=== PATIENT | female | born 2000 | race Caucasian/White ===

== ENCOUNTER 2023-09-19 04:39 | Emergency (ER) | payer SELFPAY ==
[~2023-09-19] VITALS: Ht 170.2 cm; Wt 81.8 kg
[~2023-09-19 04:39] MED LIST: CEPHALEXIN500 M1 PO; PREDNISONE20 MG PO; ZYRTEC 10MG10 MG PO
[2023-09-19 04:47] VITALS: TEMP 98
[2023-09-19] MEDS ORDERED: NS 1,000 ML IV ONE (05:15)
[2023-09-19] MEDS ORDERED: Morphine 4 MG/ML VIAL IV PRN (05:15)
[2023-09-19] MEDS ORDERED: Ondansetron 4 MG/2 ML VIAL IV PRN (05:15)
[2023-09-19] MEDS ORDERED: NS 50 ML IV ONE (05:26)
[2023-09-19] MEDS ORDERED: Iohexol 300 - 100 ML VIAL IV ONE (05:26)
[2023-09-19 05:39] LABS: ALBUMIN 3.6 g/dL (3.5-5.0); BILIRUBIN,TOTAL 0.2 mg/dL (0.2-1.2); CALCIUM 9.2 mg/dL (8.4-10.2); CREATININE, serum 0.72 mg/dL (0.57-1.11); POTASSIUM 3.6 mEq/L (3.5-4.5)
[2023-09-19 05:50] LABS: BASO # 0.1 K/mm3 (0.0-0.2); BASO % 0.6 % (0.0-2.0); EOS # 0.1 K/mm3 (0.0-0.7); EOS % 1.2 % (0.0-4.0); GRAN # 5.4 K/mm3 (1.4-6.5); HEMATOCRIT 37.6 % (37.0-47.0); HEMOGLOBIN 12.3 g/dl (12.5-16.0); LYMPH # 2.2 K/mm3 (1.2-3.4); LYMPH % 26.7 % (20.0-51.0); MEAN CELL VOLUME 89 fl (80.0-100.0); MEAN CORPUSCULAR HEMOGLOBIN 29 pg (27-31); MEAN CORPUSCULAR HGB CONC 33 g/dl (33.0-37.0); MEAN PLATELET VOLUME 10.6 fl (7.4-10.4); MONO # 0.6 K/mm3 (0.1-0.6); MONO % 7.3 % (1.7-9.3); PLATELET COUNT 294 K/mm3 (130-400); RED BLOOD COUNT 4.23 M/mm3 (4.10-5.30); REDCELL DISTRIBUTION WIDTH-CV 13.2 % (11.5-14.5)
[2023-09-19] MEDS ORDERED: NORCO 325 MG-51 TAB PO (06:20)
[2023-09-19 06:27] VITALS: BP 110/63; PULSE 72
== END 2023-09-19 06:34 | disposition home or self-care (01) ==
LOC: COL.ER 04:39
PROVIDERS: Personal Emergency Response Attendant
DX: S09.90XA Unspecified injury of head, initial encounter (principal); S30.1XXA Contusion of abdominal wall, initial encounter; V89.2XXA Person injured in unspecified motor-vehicle accident, traffic, initial encounter; Y92.89 Other specified places as the place of occurrence of the external cause
CPT/HCPCS: J2270; J2405; J7030; Q9967

== ENCOUNTER 2024-04-20 18:56 | Emergency (ER) | payer BC ==
[~2024-04-20] VITALS: Ht 170.2 cm; Wt 81.8 kg
[~2024-04-20 18:56] MED LIST changes: +NORCO 325 MG-51 TAB PO
[2024-04-20 19:02] VITALS: TEMP 98.1
[2024-04-20 20:26] LABS: URINE APPEARANCE CLEAR (CLEAR/HAZY); URINE BLOOD NEGATIVE (NEGATIVE); URINE COLOR YELLOW (YELLOW); URINE GLUCOSE NEGATIVE (NEGATIVE); URINE KETONE NEGATIVE (NEGATIVE); URINE NITRATE NEGATIVE (NEGATIVE); URINE PROTEIN(semi-quant) NEGATIVE (NEGATIVE); URINE UROBILINOGEN 0.2 E.U/dL (0.2-1.0)
[2024-04-20 20:27] LABS: COLLECTION METHOD CLEAN CATCH
[2024-04-20 20:35] LABS: HIV 1/2 Antibodies Non-Reactive; HIV-1p24 Antigen Non-Reactive
[2024-04-20 21:22] VITALS: BP 110/62; PULSE 67
== END 2024-04-20 21:22 | disposition home or self-care (01) ==
LOC: COL.ER 18:56
PROVIDERS: Emergency Medicine
DX: R10.2 Pelvic and perineal pain (principal); F17.210 Nicotine dependence, cigarettes, uncomplicated